=== PATIENT | male | born 1980 | race Caucasian/White ===

== ENCOUNTER 2021-05-21 20:13 | Emergency (ER) | payer OTHER ==
[~2021-05-21] VITALS: Ht 170.2 cm; Wt 108.1 kg
[2021-05-21 20:24] VITALS: BP 125/66
--- NOTE | 2021-05-21 20:30 | NUR ---
PT TAKEN TO BED 06.
--- NOTE | 2021-05-21 20:32 | NUR ---
Patient BIB by family from home. C/O right hand laceration x today. Patient reported, cut himself by accident today. A/O, X4, ~ 3 cm , bleeding control, pain rate 07/13
[2021-05-21] MEDS ORDERED: LIDOCAINE MPF 1% 10 MG/ML VIAL INJ ONE (20:40)
--- NOTE | 2021-05-21 21:14 | NUR ---
Patient has a 3 cm laceration to right hand. Dr. Maciel applied sutures using sterile technique. Edges well approximated. Site cleansed with NSS. No bleeding noted. Pt tolerated well.
[2021-05-21] MEDS ORDERED: BACITRACIN OINT 500 UNITS/GM PKT TP ONE ×2 (21:25)
[2021-05-21] MEDS ORDERED: IBUP-2213 PO (21:36)
[2021-05-21 21:45] VITALS: BP 128/71
== END 2021-05-21 21:45 | disposition home or self-care (01) ==
LOC: MED 20:13
DX: S61.411A Laceration without foreign body of right hand, initial encounter (principal); W45.8XXA Other foreign body or object entering through skin, initial encounter; Y93.89 Activity, other specified; Y92.89 Other specified places as the place of occurrence of the external cause; Y99.8 Other external cause status
CPT/HCPCS: 12002; 90471; 90715; 99283; J2001

== ENCOUNTER 2022-04-09 01:45 | Emergency (ER) | payer OTHER ==
[~2022-04-09] VITALS: Ht 172.7 cm; Wt 104.3 kg
[~2022-04-09 01:45] MED LIST: IBUP-2213 PO
[2022-04-09 01:48] VITALS: BP 147/100
--- NOTE | 2022-04-09 01:55 | NUR ---
TO BED 8 FOLLOWING TRIAGE
--- NOTE | 2022-04-09 02:06 | NUR ---
Patient being evaluated by physician at bedside.
[2022-04-09] MEDS ORDERED: FAMOTIDINE 20 MG/2 ML VIAL IVP ONE (02:10)
[2022-04-09] MEDS ORDERED: KETOROLAC 15 MG/ML VIAL IVP ONE (02:10)
[2022-04-09] MEDS ORDERED: ONDANSETRON 4 MG/2 ML VIAL IVP ONE (02:10)
[2022-04-09] MEDS ORDERED: NACL 0.9% 1,000 ML IV ONE (02:15)
[2022-04-09 02:39] LABS: APPEARANCE,URINE CLEAR (CLEAR); BILIRUBIN,URINE 1+ (NEGATIVE); BLOOD, URINE 2+ (NEGATIVE); COLOR,URINE YELLOW (YELLOW); LEUKOCYTE ESTERASE ,URINE NEGATIVE (NEGATIVE); NITRITE, URINE NEGATIVE (NEGATIVE); PH,URINE 5.5 (5.0-9.0); UGLUCOSE NEGATIVE (NEGATIVE)
--- NOTE | 2022-04-09 02:40 | NUR ---
41 y/o M presents with intermittent chest pain 11/12 since 2199. pt states his chest feels heavy and a heel on his chest, NV present. pt stated he took gasx, pepcid, and Ibuprohen.
[2022-04-09 02:42] LABS: BASOPHILS # (AUTO) 0.1 K/uL (0.00-0.22); BASOPHILS % (AUTO) 0.5 % (0.0-2.0); EOSINOPHILS % (AUTO) 0.3 % (0.0-4.0); HEMATOCRIT 46.7 % (36-52); HEMOGLOBIN 15.5 g/dL (12.0-18.0); LYMPHOCYTES # (AUTO) 1.6 K/uL (2.0-11.5); MEAN CORPUSCULAR HEMOGLOBIN 30 pg (27-31); MEAN CORPUSCULAR HGB CONC 33 g/dL (33-37); MEAN CORPUSCULAR VOLUME 90.7 fL (80-94); MONOCYTES # (AUTO) 0.6 K/uL (0.8-1.0); MONOCYTES % (AUTO) 4.4 % (1.7-9.3); NEUTROPHILS % (AUTO) 82.8 % (42.2-75.2); PLATELET COUNT (AUTO) 267 K/uL (140-450); RED BLOOD CELL COUNT(AUTO) 5.14 MIL/uL (4.20-6.10); RED CELL DISTRIBUTION WIDTH 13.9 % (11.6-13.7); WHITE BLOOD COUNT (AUTO) 13.3 K/uL (4.8-10.8)
[2022-04-09 02:54] LABS: RBC,URINE 0-5 /HPF (0-5); WBC,URINE 0-5 /HPF (0-5)
[2022-04-09 03:12] LABS: ANION GAP 11.8 (8-16); CARBON DIOXIDE 30.4 mmol/L (21-32); POTASSIUM 4.2 mmol/L (3.5-5.1)
[2022-04-09 03:14] LABS: ALBUMIN 4.5 g/dL (3.4-5.0)
[2022-04-09 03:32] LABS: TOTAL BILIRUBIN 0.3 mg/dL (0.0-1.0)
[2022-04-09] MEDS ORDERED: DOXY-690 PO (04:17)
[2022-04-09] MEDS ORDERED: ONDA-188 PO (04:17)
--- NOTE | 2022-04-09 04:27 | NUR ---
PT TOLERATED PO CHALLENGE . PT TO DC TO HOME. MADE CONTACT WITH [facility]
--- NOTE | 2022-04-09 04:30 | NUR ---
Patient discharged with v/s stable. Written and verbal after care instructions given and explained. Patient alert, oriented and verbalized understanding of instructions. Ambulatory with steady gait. All questions addressed prior to discharge. ID band removed. Patient advised to follow up with PMD. Rx of vibramycin and zofran given. Opportunity to ask questions provided and answered.
== END 2022-04-09 04:30 | disposition home or self-care (01) ==
LOC: MED 01:45
DX: J18.9 Pneumonia, unspecified organism (principal); K21.9 Gastro-esophageal reflux disease without esophagitis
CPT/HCPCS: 36415; 71045; 80053; 81001; 83690; 85025; 96361; 96374; 96375; 99284; J1885; J2405; J3490; Q0092

== ENCOUNTER 2022-08-30 10:12 | Emergency (ER) | payer OTHER ==
[~2022-08-30] VITALS: Ht 172.7 cm; Wt 100.2 kg
[~2022-08-30 10:12] MED LIST changes: +DOXY-690 PO; +ONDA-188 PO
[2022-08-30 10:13] VITALS: BP 151/90
[2022-08-30] MEDS ORDERED: ONDANSETRON 4 MG/2 ML VIAL IVP ONE (10:25)
[2022-08-30] MEDS ORDERED: NACL 0.9% 1,000 ML IV ONE (10:25)
--- NOTE | 2022-08-30 11:05 | NUR ---
Patient being evaluated by physician at bedside.
[2022-08-30] MEDS ORDERED: METOCLOPRAMIDE 10 MG/2 ML INJ VIAL IVP ONE (11:10)
[2022-08-30] MEDS ORDERED: diphenhydrAMINE 50 MG/ML VIAL IVP ONE (11:10)
[2022-08-30] MEDS ORDERED: KETOROLAC 30 MG/ML VIAL IVP ONE (11:10)
[2022-08-30] MEDS ORDERED: ONDA8TAB87 PO (12:31)
[2022-08-30] MEDS ORDERED: IBUP-2213 PO (12:31)
[2022-08-30 12:45] VITALS: BP 151/90
--- NOTE | 2022-08-30 12:46 | NUR ---
Patient discharged with v/s stable. Written and verbal after care instructions given and explained. Patient alert, oriented and verbalized understanding of instructions. Ambulatory with steady gait. All questions addressed prior to discharge. ID band removed. Patient advised to follow up with PMD. Rx of IBUPROFEN, ZOFRAN given. Patient educated on indication of medication including possible reaction and side effects. Opportunity to ask questions provided and answered.
== END 2022-08-30 12:45 | disposition home or self-care (01) ==
LOC: MED 10:12
DX: R10.12 Left upper quadrant pain (principal); R11.2 Nausea with vomiting, unspecified; R50.9 Fever, unspecified; K21.9 Gastro-esophageal reflux disease without esophagitis; Z79.899 Other long term (current) drug therapy
CPT/HCPCS: 93005; 96361; 96374; 96375; 99284; J1200; J1885; J2405; J2765; J7030

== ENCOUNTER 2022-12-23 07:28 | Day surgery (SDC) | payer OTHER ==
[~2022-12-23] VITALS: Ht 172.7 cm; Wt 104.3 kg
[~2022-12-23 07:28] MED LIST changes: +ONDA8TAB87 PO
[2022-12-23] MEDS ORDERED: MIDAZOLAM 5 MG/5 ML VIAL ONE (08:14)
[2022-12-23] MEDS ORDERED: diphenhydrAMINE 50 MG/ML VIAL ONE (08:14)
[2022-12-23] MEDS ORDERED: fentaNYL citrate 0.05 MG/ML VIAL ONE (08:14)
[2022-12-23] MEDS ORDERED: ONABOTULINUMTOXINA 100 UNIT IV SCH ×3 (08:20→09:45)
== END 2022-12-23 09:15 | disposition home or self-care (01) ==
LOC: MMU 07:28 → MOR 07:28
PROVIDERS: ATTEND Internal Medicine Gastroenterology
DX: R13.10 Dysphagia, unspecified (principal); K22.89 Other specified disease of esophagus; K21.9 Gastro-esophageal reflux disease without esophagitis; Z79.899 Other long term (current) drug therapy; Z98.890 Other specified postprocedural states
CPT/HCPCS: 43236; J1200; J2250; J3010

== ENCOUNTER 2023-03-04 08:18 | Day surgery (SDC) | payer OTHER ==
[~2023-03-04] VITALS: Ht 172.7 cm; Wt 101.2 kg
[2023-03-04] MEDS ORDERED: fentaNYL citrate 0.05 MG/ML VIAL ONE ×2 (09:53→11:55)
[2023-03-04] MEDS ORDERED: MIDAZOLAM 2 MG/2 ML VIAL ONE ×2 (09:53→11:01)
[2023-03-04] MEDS ORDERED: SIMETHICONE 40 MG/0.6 ML ONE (09:53)
[2023-03-04] MEDS ORDERED: fentaNYL citrate 0.05 MG/ML VIAL IVP ONE (12:00)
[2023-03-04] MEDS ORDERED: MIDAZOLAM 2 MG/2 ML VIAL IVP ONE (12:00)
[2023-03-04] MEDS ORDERED: SUCCINYLCHOLINE CHLORIDE 200 MG/10 ML VIAL IVP ONE (12:16)
[2023-03-04] MEDS ORDERED: PROPOFOL 200 MG/20 ML VIAL IV ONE (12:16)
== END 2023-03-04 10:20 | disposition home or self-care (01) ==
LOC: MDS 08:18 → MMU 08:50 → MDS 10:20
PROVIDERS: ATTEND Internal Medicine Gastroenterology
DX: K22.0 Achalasia of cardia (principal); K21.9 Gastro-esophageal reflux disease without esophagitis; F17.210 Nicotine dependence, cigarettes, uncomplicated
CPT/HCPCS: 43215; J0330; J2250; J2704; J3010; J7030; J7120; C1771